=== PATIENT | male | born 1990 | race African-American/Black ===

== ENCOUNTER 2018-06-12 11:53 | Emergency (ER) | payer OTHER, SELFPAY ==
[2018-06-12] MEDS ORDERED: CLINDAMYCIN 600MG/D5W 600 MG/50 ML BAG IV ONE (12:28)
[2018-06-12] MEDS ORDERED: NA CHLORIDE 0.9% 1,000 ML ONE (12:28)
[2018-06-12] MEDS ORDERED: FENTANYL CITR 100 MCG/2 ML ONE (12:28)
--- NOTE | 2018-06-12 12:47 | EKG ---
Test Date: 2018-06-12 Test Time: 12:15:22 Machine Brusher: SERA MEASUREMENT RESULTS: Intervals: Rate: 69 HI: 172 QRSD: 90 QT: 368 QTc: 394 [place]: P: 42 HI: 172 QRS: 70 T: 35 INTERPRETIVE STATEMENTS: Normal sinus rhythm Early repolarization Normal ECG No previous ECG available for comparison Electronically Signed On 06-12-18 12:47:10 CDT by Sam Pro
[2018-06-12 13:03] LABS: Absolute Lymphocytes (CBC) 2.5 K/uL (0.7-4.9); Absolute Monocytes 0.7 K/uL (0.1-1.3); Absolute Neutrophil 4.3 K/uL (1.8-8.0); Basophils % 1.2 % (0-1.3); Eosinophils % 2.6 % (0-4.4); Hematocrit 42.5 % (39.6-49.0); Lymphocytes % 32.6 % (15.3-44.8); MCH 27.6 pg (27.0-35.0); MCV 81.4 fL (80-100); Monocytes % 8.6 % (3.3-12.3); RBC Red Blood Cell Count 5.21 M/uL (4.33-5.43)
[2018-06-12 13:15] LABS: Protime INR 0.94
[2018-06-12 13:23] LABS: ALT/SGPT 113 U/L (12-78); AST/SGOT 48 U/L (15-37); Albumin 3.7 g/dL (3.4-5.0); Alkaline Phosphatase 81 U/L (45-117); BUN Blood Urea Nitrogen 13 mg/dL (7-18); Bicarbonate 29 mmol/L (21-32); Bilirubin Direct < 0.1 mg/dL (0-0.2); Bilirubin Total 0.3 mg/dL (0.2-1.0); CKMB Creatine Kinase MB 1.8 ng/mL (0.3-3.6); Creatine Phosphokinase 227 U/L (39-308); Glucose Level 218 mg/dL (74-106); Magnesium 1.9 mg/dL (1.8-2.4); NT PRO-BNP 16 pg/mL (<125); Potassium 4.4 mmol/L (3.5-5.1); Protein, Total 7.3 g/dL (6.4-8.2); Sodium Level 138 mmol/L (136-145)
[2018-06-12] MEDS ORDERED: AMLODIPINE 5 MG TAB ONE (14:11)
[2018-06-12] MEDS ORDERED: ASPIRIN 81 MG CHEWABLE TABLET ONE (14:11)
[2018-06-12 14:34] LABS: Urine Blood NEGATIVE (NEG); Urine Glucose 2+ (NEG); Urine Protein NEGATIVE (NEG); Urine Specific Gravity 1.025 (1.005-1.030)
[2018-06-12 14:37] LABS: Barbiturates NEGATIVE (NEGATIVE); Benzodiazepines POSITIVE (NEGATIVE); Cocaine NEGATIVE (NEGATIVE); METHAMPHETAM NEGATIVE (NEGATIVE); Methadone NEGATIVE (NEGATIVE); Opiates NEGATIVE (NEGATIVE); Phencyclidine NEGATIVE (NEGATIVE); THC Cannibis POSITIVE (NEGATIVE)
--- NOTE | 2018-06-12 15:07 | RAD REPORT ---
EXAM DESCRIPTION: RAD - Chest Single View - 06/12/2018 1:55 pm CLINICAL HISTORY: Left-sided chest pain COMPARISON: None. TECHNIQUE: AP portable chest image was obtained 1352 hours . FINDINGS: Lungs are clear. Heart and vasculature are normal. No measurable pleural effusion and no p neumothorax. No gross bony abnormality seen. No acute aortic finding. Single lead defibrillator in pl [address] via left subclavian approach. IMPRESSION: No acute cardiopulmonary process.
--- NOTE | 2018-06-12 15:55 | ER ---
Nurse's Notes [facility] Name: Kendall Taet Age: 28 yrs Sex: Male : 1990 Arrival Date: 06/12/2018 Time: 11:54 Bed 4 Private MD: Diagnosis: Dental caries, unspecified;Palpitations;Patient's intentional underdosing of medication regimen due to financial hardship Presentation: 06/12 11:55 Presenting complaint: Patient states: Right sided mouth pain x 1 year, left sided chest hb pain and "fluttering" since yesterday. Chest pain does not radiate, denies SOB. Hx [place] w/ defib placement, report pain is similar to previous [place]. Transition of care: patient was not received from another setting of care. Onset of symptoms was June 11, 2018. Risk Assessment: Do you want to hurt yourself or someone else? Patient reports no desire to harm self or others. Initial Sepsis Screen: Does the patient meet any 2 criteria? No. Patient's initial sepsis screen is negative. Does the patient have a suspected source of infection? No. Patient's initial sepsis screen is negative. Care prior to arrival: None. 11:55 Method Of Arrival: EMS: [facility] 11:55 Acuity: MELBA 3 hb Triage Assessment: 12:00 General: Appears in no apparent distress. uncomfortable, Behavior is calm, cooperative. hb Pain: Pain currently is 10 out of 10 on a pain scale. Neuro: Level of Consciousness is awake, alert, obeys commands, Oriented to person, place, time, situation. Cardiovascular: Capillary refill < 3 seconds Patient's skin is warm and dry. Respiratory: Airway is patent Trachea midline Respiratory effort is even, unlabored, Respiratory pattern is regular, symmetrical. Historical: - Allergies: 11:59 No Known Allergies; hb - PMHx: 11:59 Myocardial infarction; hb - PSHx: 11:59 Pacemaker/defib; hb - Immunization history:: Adult Immunizations up to date. - Social history:: Smoking status: Patient/guardian denies using tobacco. - Ebola Screening: : No symptoms or risks identified at this time. Vital Signs: 11:58 BP 159 / 102; Pulse 79; Resp 15; Temp 97.9; Pulse Ox 98% on R/A; Pain 10/10; hb 13:30 BP 156 / 96; Pulse 70; Resp 17; Pulse Ox 98% on R/A; Pain 10/10; sg 14:30 BP 143 / 86; Pulse 73; Resp 16 S; Temp 97.9; Pulse Ox 100% on R/A; sg ED Course: 11:54 Patient arrived in ED. hb 11:58 Triage completed. hb 11:58 Arm band placed on right wrist. hb 11:59 Surekha Hernandez FNP-C is [facility]. snw 11:59 Kj Moscoso MD is Attending Physician. snw 12:21 Geovani Doherty, RN is Primary Nurse. sg 12:33 First set of blood cultures drawn by me. Missed attempt(s): 20 gauge in right dh3 antecubital area. Bleeding controlled, band aid applied, catheter tip intact. 12:40 EKG done, by information technology manager. reviewed by Surekha DESHPANDE. at1 12:50 Initial lab(s) drawn, by me, sent to lab. Second set of blood cultures drawn by me. dh3 Inserted saline lock: 20 gauge in left wrist, using aseptic technique. Blood collected. 13:55 XRAY Chest (1 view) In Process Unspecified. EDMS 13:56 X-ray completed. Portable x-ray completed in exam room. Patient tolerated procedure la2 well. 15:10 EKG done, by information technology manager. reviewed by Surekha DESHPANDE. sm3 Administered Medications: 13:30 Drug: Clindamycin 600 mg Route: IVPB; Infused Over: 30 mins; Site: left hand; sg 13:30 Drug: NS 0.9% 1000 ml Route: IV; Rate: 75 ml/hr; Site: left hand; sg 13:30 Drug: fentaNYL (PF) 50 mcg Route: IVP; Site: left hand; sg 14:00 Follow up: Response: No adverse reaction; Pain is unchanged, physician notified sg 14:10 Drug: Aspirin Chewable Tablet 324 mg Route: PO; sg 15:00 Follow up: Response: No adverse reaction sg 14:10 Drug: Norvasc 10 mg Route: PO; sg 15:00 Follow up: Response: No adverse reaction sg Outcome: 15:55 Discharge ordered by . snw 16:05 Patient left the ED. sg Signatures: Dispatcher [employer] EDMS Geovani Doherty, RN RN sg Surekha Hernandez, LAUNDRY ATTENDANT-C LAUNDRY ATTENDANT-Csnw Abril valencia, home appliance tech EKG [facility] Hailey Neil, FRAN RN Tory Dotson 3 Radha English ga2 Shantal Duron 3
--- NOTE | 2018-06-12 15:55 | EDPHYS ---
Physician Documentation [facility] Name: Kendall Tate Age: 28 yrs Sex: Male : 1990 Arrival Date: 06/12/2018 Time: 11:54 Bed 4 Private MD: ED Physician Kj Moscoso HPI: 06/12 12:48 This 28 yrs old Black Male presents to ER via EMS with complaints of Chest Pain, Mouth snw Problem. 12:48 pt states he has multiple dental caries causing pain for over a year, worse last night snw and today, + "couldn't take it anymore and it's causing fluttering around my pacemaker". Onset: The symptoms/episode began/occurred suddenly, today. Severity of symptoms: At their worst the symptoms were moderate. It is unknown whether or not the patient has had similar symptoms in the past. The patient has not recently seen a physician, and does not have an established primary care provider. 2014 + NH and defib placement . Historical: - Allergies: 11:59 No Known Allergies; hb - PMHx: 11:59 Myocardial infarction; hb - PSHx: 11:59 Pacemaker/defib; hb - Immunization history:: Adult Immunizations up to date. - Social history:: Smoking status: Patient/guardian denies using tobacco. - Ebola Screening: : No symptoms or risks identified at this time. ROS: 12:47 Constitutional: Negative for fever, chills, and weight loss, Eyes: Negative for injury, snw pain, redness, and discharge, Neck: Negative for injury, pain, and swelling. 12:47 Respiratory: Negative for shortness of breath, cough, wheezing, and pleuritic chest pain, Abdomen/GI: Negative for abdominal pain, nausea, vomiting, diarrhea, and constipation, Back: Negative for injury and pain, : Negative for injury, bleeding, discharge, and swelling, MS/Extremity: Negative for injury and deformity, Skin: Negative for injury, rash, and discoloration, Neuro: Negative for headache, weakness, numbness, tingling, and seizure. 12:47 ENT: Positive for dental pain, of the right buccal mucosa, lower right second molar and lower right third molar. 12:47 Cardiovascular: Positive for palpitations. Exam: 12:45 Constitutional: This is a well developed, well nourished patient who is awake, alert, snw and in no acute distress. Head/Face: Normocephalic, atraumatic. Eyes: Pupils equal round and reactive to light, extra-ocular motions intact. Lids and lashes normal. Conjunctiva and sclera are non-icteric and not injected. Cornea within normal limits. Periorbital areas with no swelling, redness, or edema. Neck: Trachea midline, no thyromegaly or masses palpated, and no cervical lymphadenopathy. Supple, full range of motion without nuchal rigidity, or vertebral point tenderness. No Meningismus. Chest/axilla: Normal chest wall appearance and motion. Nontender with no deformity. No lesions are appreciated. Cardiovascular: Regular rate and rhythm with a normal S1 and S2. No gallops, murmurs, or rubs. Normal PMI, no JVD. No pulse deficits. Respiratory: Lungs have equal breath sounds bilaterally, clear to auscultation and percussion. No rales, rhonchi or wheezes noted. No increased work of breathing, no retractions or nasal flaring. Abdomen/GI: Soft, non-tender, with normal bowel sounds. No distension or tympany. No guarding or rebound. No evidence of tenderness throughout. Back: No spinal tenderness. No costovertebral tenderness. Full range of motion. Skin: Warm, dry with normal turgor. Normal color with no rashes, no lesions, and no evidence of cellulitis. MS/ Extremity: Pulses equal, no cyanosis. Neurovascular intact. Full, normal range of motion. Neuro: Awake and alert, GCS 15, oriented to person, place, time, and situation. Cranial nerves II-XII grossly intact. Motor strength 5/5 in all extremities. Sensory grossly intact. Cerebellar exam normal. Normal gait. 12:45 ENT: External ear(s): no acute changes, Ear canal(s): no acute changes, TM's: are normal, Nose: is normal, Mouth: is normal, Posterior pharynx: is normal, Dental exam: dental caries, that is moderate, diffusely, tenderness to right upper and lower molars, fractured teeth are noted, Voice: is normal. Vital Signs: 11:58 BP 159 / 102; Pulse 79; Resp 15; Temp 97.9; Pulse Ox 98% on R/A; Pain 10/10; hb 13:30 BP 156 / 96; Pulse 70; Resp 17; Pulse Ox 98% on R/A; Pain 10/10; sg 14:30 BP 143 / 86; Pulse 73; Resp 16 S; Temp 97.9; Pulse Ox 100% on R/A; sg MDM: 12:13 Patient medically screened. snw 14:47 Data reviewed: vital signs, nurses notes. Data interpreted: Pulse oximetry: on room air snw is 98 %. Interpretation: normal. Counseling: I had a detailed discussion with the patient and/or guardian regarding: the historical points, exam findings, and any diagnostic results supporting the discharge/admit diagnosis, the presence of at least one elevated blood pressure reading (>120/80) during this emergency department visit, lab results. 15:01 Response to treatment: the patient's symptoms have mildly improved after treatment. ED snw course: awaiting result of second troponin. No defib firing, no changes to EKG x 2, Doubt NH at 26 was due to coronary artery disease. Pt states he only takes advil because he cannot afford medications. UDS + for THC and Benzo's. Will recommend f/u with PCP, Cardiology, and Dentist. 15:11 Special discussion: Based on the history and exam findings, there is no indication for snw further emergent testing or inpatient evaluation. I discussed with the patient/guardian the need to see the commercial real estate lender for further evaluation of the symptoms. I discussed with the patient/guardian the need to see a dentist for further evaluation of the symptoms. I discussed with the patient/guardian the need to see the primary care provider for further evaluation of the symptoms. 06/12 12:06 Order name: Basic Metabolic Panel; Complete Time: 13:42 snw 06/12 12:06 Order name: CBC with Diff; Complete Time: 13:42 snw 06/12 12:06 Order name: Ckmb; Complete Time: 13:42 snw 06/12 12:06 Order name: CPK; Complete Time: 13:42 snw 06/12 12:06 Order name: LFT's; Complete Time: 13:42 snw 06/12 12:06 Order name: Magnesium; Complete Time: 13:42 snw 06/12 12:06 Order name: NT PRO-BNP; Complete Time: 13:42 snw 06/12 12:06 Order name: PT-INR; Complete Time: 13:42 snw 06/12 12:06 Order name: Ptt, Activated; Complete Time: 13:42 snw 06/12 12:06 Order name: Troponin (emerg Dept Use Only); Complete Time: 13:42 snw 06/12 12:12 Order name: Blood Culture Adult (2) snw 06/12 12:12 Order name: UDS; Complete Time: 14:47 snw 06/12 14:13 Order name: Urine Dipstick--Ancillary (enter results) bd 06/12 14:48 Order name: Troponin (emerg Dept Use Only); Complete Time: 15:42 snw 06/12 12:06 Order name: XRAY Chest (1 view); Complete Time: 15:11 snw 06/12 12:06 Order name: EKG; Complete Time: 12:07 snw 06/12 12:06 Order name: Cardiac monitoring; Complete Time: 12:59 snw 06/12 12:06 Order name: EKG - Nurse/Tech; Complete Time: 12:59 snw 06/12 12:06 Order name: IV Saline Lock; Complete Time: 12:59 snw 06/12 12:06 Order name: Labs collected and sent; Complete Time: 12:59 snw 06/12 12:06 Order name: O2 Per Protocol; Complete Time: 12:59 snw 06/12 12:06 Order name: O2 Sat Monitoring; Complete Time: 12:59 snw 06/12 12:06 Order name: Urine Dipstick-Ancillary (obtain specimen); Complete Time: 14:11 snw 06/12 13:46 Order name: Diet Heart Healthy; Complete Time: 13:47 sg 06/12 14:48 Order name: EKG; Complete Time: 14:48 snw Administered Medications: 13:30 Drug: Clindamycin 600 mg Route: IVPB; Infused Over: 30 mins; Site: left hand; sg 13:30 Drug: NS 0.9% 1000 ml Route: IV; Rate: 75 ml/hr; Site: left hand; sg 13:30 Drug: fentaNYL (PF) 50 mcg Route: IVP; Site: left hand; sg 14:00 Follow up: Response: No adverse reaction; Pain is unchanged, physician notified sg 14:10 Drug: Aspirin Chewable Tablet 324 mg Route: PO; sg 15:00 Follow up: Response: No adverse reaction sg 14:10 Drug: Norvasc 10 mg Route: PO; sg 15:00 Follow up: Response: No adverse reaction sg Disposition: 06/12/18 15:55 Discharged to Home. Impression: Dental caries, unspecified, Palpitations, Patient's intentional underdosing of medication regimen due to financial hardship. - Condition is Stable. - Discharge Instructions: Nonspecific Chest Pain, Dental Pain, Hypertension, Palpitations, Diet and Dental Disease, Aspirin and Your Heart. - Prescriptions for Clindamycin HCl 150 mg Oral Capsule - take 1 capsule by ORAL route every 6 hours for 10 days; 40 capsule. Norvasc 10 mg Oral Tablet - take 1 tablet by ORAL route once daily; 30 tablet. - Work release form, Medication Reconciliation Form, Thank You Letter, Antibiotic Education, Prescription Opioid Use form. - Follow up: Private Physician; When: 2 - 3 days; Reason: Recheck today's complaints, Continuance of care, Re-evaluation by your physician. Follow up: Emergency Department; When: As needed; Reason: Worsening of condition. - Notes: Please take one baby aspirin daily Addendum: 06/14/2018 19:54 Co-signature as Attending Physician, Kj Moscoso MD I agree with the assessment and w a plan of care. Signatures: Dispatcher [employer] EDMS Geovani Doherty RN RN Surekha Avina, INSTRUMENT MAINTENANCE SUPERVISOR-C INSTRUMENT MAINTENANCE SUPERVISOR-Csnw Hailey Neil RN RN Kj Moscoso MD MD wa Corrections: (The following items were deleted from the chart) 06/12 16:05 15:55 06/12/2018 15:55 Discharged to Home. Impression: Dental caries, unspecified; sg Palpitations; Patient's intentional underdosing of medication regimen due to financial hardship. Condition is Stable. Discharge Instructions: Nonspecific Chest Pain, Dental Pain, Hypertension, Palpitations, Diet and Dental Disease, Aspirin and Your Heart. Prescriptions for Clindamycin HCl 150 mg Oral Capsule - take 1 capsule by ORAL route every 6 hours for 10 days; 40 capsule, Norvasc 10 mg Oral Tablet - take 1 tablet by ORAL route once daily; 30 tablet. and Forms are Work release form, Medication Reconciliation Form, Thank You Letter, Antibiotic Education, Prescription Opioid Use. Follow up: Private Physician; When: 2 - 3 days; Reason: Recheck today's complaints, Continuance of care, Re-evaluation by your physician. Follow up: Emergency Department; When: As needed; Reason: Worsening of condition. gustavo
--- NOTE | 2018-06-12 16:45 | EKG ---
Test Date: 2018-06-12 Test Time: 14:52:31 Java Software: PAUL MEASUREMENT RESULTS: Intervals: Rate: 65 DE: 178 QRSD: 90 QT: 378 QTc: 393 [place]: P: 38 DE: 178 QRS: 67 T: 37 INTERPRETIVE STATEMENTS: Normal sinus rhythm ST elevation, probably due to early repolarization Borderline ECG Compared to ECG 06/12/2018 12:15:22 ST (T wave) deviation now present Electronically Signed On 06-12-18 16:44:20 CDT by Sam Pro
== END 2018-06-12 16:05 | disposition home or self-care (01) ==
LOC: ER 11:53
DX: R00.2 Palpitations (principal); Z91.120 Patient's intentional underdosing of medication regimen due to financial hardship; I25.2 Old myocardial infarction; Z95.810 Presence of automatic (implantable) cardiac defibrillator
CPT/HCPCS: 36415; 71045; 80048; 80076; 80307; 81003; 82550; 82553; 83735; 83880; 84484; 85025; 85610; 85730; 87040; 93005; 96374; 96375; 99284; J3010; J7030

== ENCOUNTER 2018-07-07 04:21 | Emergency (ER) | payer SELFPAY ==
[2018-07-07] MEDS ORDERED: HYDROCODONE/APAP 5/325 MG TAB ONE (04:53)
[2018-07-07 05:08] LABS: Absolute Lymphocytes (CBC) 3.1 K/uL (0.7-4.9); Absolute Monocytes 0.6 K/uL (0.1-1.3); Absolute Neutrophil 3.4 K/uL (1.8-8.0); Basophils % 0.9 % (0-1.3); Eosinophils % 3.2 % (0-4.4); Hematocrit 41.3 % (39.6-49.0); Lymphocytes % 41.9 % (15.3-44.8); MCH 27.6 pg (27.0-35.0); MCV 82.9 fL (80-100); MPV 9.7 fL (7.6-11.3); Monocytes % 8.1 % (3.3-12.3); RBC Red Blood Cell Count 4.99 M/uL (4.33-5.43)
[2018-07-07 05:23] LABS: BUN Blood Urea Nitrogen 8 mg/dL (7-18); Bicarbonate 28 mmol/L (21-32); Glucose Level 366 mg/dL (74-106); Potassium 4.1 mmol/L (3.5-5.1); Sodium Level 138 mmol/L (136-145)
[2018-07-07 05:25] LABS: Urine Blood TRACE (NEG); Urine Glucose NEGATIVE (NEG); Urine Protein NEGATIVE (NEG); Urine Specific Gravity 1.025 (1.005-1.030)
--- NOTE | 2018-07-07 05:36 | ER ---
Nurse's Notes [facility] Name: Kendall Tate Age: 28 yrs Sex: Male : 1990 Arrival Date: 07/07/2018 Time: 04:24 Bed 7 Private MD: Diagnosis: Chest pain, unspecified;Dental caries;Headache;Essential (primary) hypertension Presentation: 07/07 04:25 Presenting complaint: EMS states: Initially toned out for chest pain, on arrival lp1 patient complaint of mouth pain to right side of mouth; States given antibiotics here in ED 2 weeks ago, no improvement and no follow-up; Patient states "the wind hurts my mouth". Transition of care: patient was not received from another setting of care. Onset of symptoms was July 07, 2018. Risk Assessment: Do you want to hurt yourself or someone else? Patient reports no desire to harm self or others. Initial Sepsis Screen: Does the patient meet any 2 criteria? No. Patient's initial sepsis screen is negative. Does the patient have a suspected source of infection? No. Patient's initial sepsis screen is negative. Care prior to arrival: Glucose check: 259. 04:25 Method Of Arrival: EMS: [facility] lp1 04:25 Acuity: MELBA 3 lp1 Historical: - Allergies: 04:29 Iodine; lp1 - Home Meds: 04:29 Coreg 12.5 mg Oral tab 1 tab 2 times per day [Active]; lp1 - PMHx: 04:29 Enlarged heart; lp1 05:32 Myocardial infarction; Hypertension; gs - Immunization history:: Adult Immunizations up to date. - Social history:: Smoking status: Patient uses tobacco products, smokes one-half pack cigarettes per day. - Ebola Screening: : No symptoms or risks identified at this time. Screenin:30 Abuse screen: Denies threats or abuse. Denies injuries from another. Nutritional lp1 screening: No deficits noted. Tuberculosis screening: No symptoms or risk factors identified. Fall Risk None identified. Assessment: 04:30 General: Appears in no apparent distress. uncomfortable, Behavior is cooperative, tl2 appropriate for age, anxious. Pain: Complains of pain in right side of mouth. Neuro: Level of Consciousness is awake, alert, obeys commands, Oriented to person, place, time, situation. Cardiovascular: Chest pain is described as mild, quality is sharp, is located in anterior. Respiratory: Airway is patent Respiratory effort is even, unlabored, Respiratory pattern is regular, symmetrical. GI: No signs and/or symptoms were reported involving the gastrointestinal system. : No signs and/or symptoms were reported regarding the genitourinary system. Derm: Skin is pink, warm \\T\\ dry. 05:51 Reassessment: Patient appears in no apparent distress at this time. Patient and/or tl2 family updated on plan of care and expected duration. Pain level reassessed. Patient is alert, oriented x 3, equal unlabored respirations, skin warm/dry/pink. Pt verbalized understanding of discharge instructions, need for follow up and prescription usage. Vital Signs: 04:27 BP 172 / 93; Pulse 73; Resp 18; Temp 97.4(TE); Pulse Ox 100% on R/A; Weight 111.13 kg; lp1 Height 6 ft. 3 in. (190.50 cm); Pain 10/10; 04:30 BP 156 / 87; Pulse 69; Resp 18; Pulse Ox 99% on R/A; tl2 05:41 BP 156 / 87; Pulse 73; Resp 18; Pulse Ox 99% on R/A; lp1 04:27 Body Mass Index 30.62 (111.13 kg, 190.50 cm) lp1 04:27 Patient states he has not been taking BP medication lp1 ED Course: 04:24 Patient arrived in ED. tl2 04:25 Viktoria Lake, FRAN is Primary Nurse. lp1 04:25 Richard De La Garza MD is Attending Physician. gs 04:27 Triage completed. lp1 04:27 Arm band placed on left wrist. lp1 04:29 Patient has correct armband on for positive identification. lp1 04:46 Inserted saline lock: 22 gauge in left wrist, using aseptic technique. tl2 04:52 XRAY Chest (1 view) In Process Unspecified. EDMS 05:51 No provider procedures requiring assistance completed. IV discontinued, intact, tl2 bleeding controlled, No redness/swelling at site. Pressure dressing applied. Administered Medications: 05:01 Drug: [place] 5 mg-325 mg 1 tabs Route: PO; tl2 05:52 Follow up: Response: No adverse reaction; Pain is decreased tl2 Outcome: 05:34 Discharge ordered by . gs 05:51 Discharged to home ambulatory. tl2 05:51 Condition: stable 05:51 Discharge instructions given to patient, Instructed on discharge instructions, follow up and referral plans. medication usage, Demonstrated understanding of instructions, follow-up care, medications, Prescriptions given X 1. 05:53 Patient left the ED. tl2 Signatures: Dispatcher [employer] EDMS Viktoria Lake RN RN lp1 Jessie Mijares RN RN tl2 Richard De La Garza MD MD gs Corrections: (The following items were deleted from the chart) 04:29 04:27 BP 172 / 93; Pulse 73bpm; Resp 18bpm; Pulse Ox 100% RA; Temp 97.4F Temporal; lp1 111.13 kg; Height 6 ft. 3 in.; BMI: 30.6; Pain 09/04; lp1 04:30 04:25 Acuity: MELBA 4 lp1 lp1
--- NOTE | 2018-07-07 05:36 | EDPHYS ---
Physician Documentation [facility] Name: Kendall Tate Age: 28 yrs Sex: Male : 1990 Arrival Date: 07/07/2018 Time: 04:24 Bed 7 Private MD: ED Physician Richard De La Garza HPI: 07/07 05:30 This 28 yrs old Black Male presents to ER via EMS with complaints of Mouth Problem. gs 05:30 The patient or guardian reports chest pain that is located primarily in the anterior gs chest wall. The pain does not radiate. Associated signs and symptoms: Pertinent positives: headache, toothache. The chest pain is described as dull. Duration: The patient or guardian reports multiple episodes, that are intermittent, that wax and wane, with no pattern, the episodes last approximately 1 minute(s). Modifying factors: The symptoms are alleviated by nothing. the symptoms are aggravated by nothing. Severity of pain: At its worst the pain was moderate in the emergency department the pain has resolved. The patient has experienced similar episodes in the past, multiple times. The patient has been recently seen at the [facility] Emergency Department, last month, for similar complaints all same. Historical: - Allergies: 04:29 Iodine; lp1 - Home Meds: 04:29 Coreg 12.5 mg Oral tab 1 tab 2 times per day [Active]; lp1 - PMHx: 04:29 Enlarged heart; lp1 05:32 Myocardial infarction; Hypertension; gs - Immunization history:: Adult Immunizations up to date. - Social history:: Smoking status: Patient uses tobacco products, smokes one-half pack cigarettes per day. - Ebola Screening: : No symptoms or risks identified at this time. ROS: 05:32 Neuro: Positive for headache. gs 05:32 All other systems are negative. Exam: 05:32 Head/Face: Normocephalic, atraumatic. Eyes: Pupils equal round and reactive to light, gs extra-ocular motions intact. Lids and lashes normal. Conjunctiva and sclera are non-icteric and not injected. Cornea within normal limits. Periorbital areas with no swelling, redness, or edema. Neck: Trachea midline, no thyromegaly or masses palpated, and no cervical lymphadenopathy. Supple, full range of motion without nuchal rigidity, or vertebral point tenderness. No Meningismus. Chest/axilla: Normal chest wall appearance and motion. Nontender with no deformity. No lesions are appreciated. Cardiovascular: Regular rate and rhythm with a normal S1 and S2. No gallops, murmurs, or rubs. Normal PMI, no JVD. No pulse deficits. Respiratory: Lungs have equal breath sounds bilaterally, clear to auscultation and percussion. No rales, rhonchi or wheezes noted. No increased work of breathing, no retractions or nasal flaring. Abdomen/GI: Soft, non-tender, with normal bowel sounds. No distension or tympany. No guarding or rebound. No evidence of tenderness throughout. Back: No spinal tenderness. No costovertebral tenderness. Full range of motion. Skin: Warm, dry with normal turgor. Normal color with no rashes, no lesions, and no evidence of cellulitis. MS/ Extremity: Pulses equal, no cyanosis. Neurovascular intact. Full, normal range of motion. Neuro: Awake and alert, GCS 15, oriented to person, place, time, and situation. Cranial nerves II-XII grossly intact. Motor strength 5/5 in all extremities. Sensory grossly intact. Cerebellar exam normal. Normal gait. 05:32 Constitutional: The patient appears alert, awake. 05:32 ENT: Dental exam: abscess, is not appreciated, dental caries, that is moderate, diffusely, fractured teeth are noted. 05:39 ECG was reviewed by the Attending Physician. Vital Signs: 04:27 BP 172 / 93; Pulse 73; Resp 18; Temp 97.4(TE); Pulse Ox 100% on R/A; Weight 111.13 kg; lp1 Height 6 ft. 3 in. (190.50 cm); Pain 10/10; 04:30 BP 156 / 87; Pulse 69; Resp 18; Pulse Ox 99% on R/A; tl2 05:41 BP 156 / 87; Pulse 73; Resp 18; Pulse Ox 99% on R/A; lp1 04:27 Body Mass Index 30.62 (111.13 kg, 190.50 cm) lp1 04:27 Patient states he has not been taking BP medication lp1 MDM: 04:34 Patient medically screened. 05:32 Differential diagnosis: acute myocardial infarction, chest wall pain, pneumonia. Data reviewed: vital signs, nurses notes. ED course: pt with chronic dental pain severe periodontal disease, said tooth started hurting subsequently got headache and chest pain. 07/07 04:35 Order name: Basic Metabolic Panel; Complete Time: 05:29 gs 07/07 04:35 Order name: CBC with Diff; Complete Time: 05:29 gs 07/07 04:35 Order name: Troponin (emerg Dept Use Only); Complete Time: 05:29 gs 07/07 04:35 Order name: XRAY Chest (1 view) 07/07 05:09 Order name: Urine Dipstick--Ancillary (enter results); Complete Time: 05:29 ms 07/07 04:35 Order name: EKG; Complete Time: 04:35 gs 07/07 04:35 Order name: Cardiac monitoring; Complete Time: 04:45 gs 07/07 04:35 Order name: EKG - Nurse/Tech; Complete Time: 05:01 gs 07/07 04:35 Order name: IV Saline Lock; Complete Time: 04:45 gs 07/07 04:35 Order name: Labs collected and sent; Complete Time: 04:45 gs 07/07 04:35 Order name: O2 Per Protocol; Complete Time: 04:45 07/07 04:35 Order name: O2 Sat Monitoring; Complete Time: 04:45 gs EC:39 Rate is 71 beats/min. Rhythm is regular. VT interval is normal. QRS interval is normal. gs QT interval is normal. Clinical impression: early repol, j point elevation. Interpreted by me. 05:42 No change from previous ECG. gs Administered Medications: 05:01 Drug: Porter 5 mg-325 mg 1 tabs Route: PO; tl2 05:52 Follow up: Response: No adverse reaction; Pain is decreased tl2 Disposition: 07/07/18 05:34 Discharged to Home. Impression: Chest pain, unspecified, Dental caries, Headache, Essential (primary) hypertension. - Condition is Stable. - Discharge Instructions: Nonspecific Chest Pain, Dental Caries, Adult. - Prescriptions for Naprosyn 500 mg Oral Tablet - take 1 tablet by ORAL route 2 times per day As needed take with food; 30 tablet. - Medication Reconciliation Form, Thank You Letter, Antibiotic Education, Prescription Opioid Use form. - Follow up: Private Physician; When: 2 - 3 days; Reason: Re-evaluation by your physician. Signatures: Dispatcher [employer] Viktoria Nelson, RN RN lp1 Jessie Mijares RN RN tl2 Richard De La Garza MD MD gs Corrections: (The following items were deleted from the chart) 05:36 05:34 07/07/2018 05:34 Discharged to Home. Impression: Chest pain, unspecified; Dental gs caries; Headache. Condition is Stable. Forms are Medication Reconciliation Form, Thank You Letter, Antibiotic Education, Prescription Opioid Use. Follow up: Private Physician; When: 2 - 3 days; Reason: Re-evaluation by your physician. 05:53 05:36 07/07/2018 05:34 Discharged to Home. Impression: Chest pain, unspecified; Dental tl2 caries; Headache; Essential (primary) hypertension. Condition is Stable. Discharge Instructions: Nonspecific Chest Pain, Dental Caries, Adult. Prescriptions for Naprosyn 500 mg Oral Tablet - take 1 tablet by ORAL route 2 times per day As needed take with food; 30 tablet. and Forms are Medication Reconciliation Form, Thank You Letter, Antibiotic Education, Prescription Opioid Use. Follow up: Private Physician; When: 2 - 3 days; Reason: Re-evaluation by your physician. gs
--- NOTE | 2018-07-07 08:51 | RAD REPORT ---
EXAM DESCRIPTION: RAD - Chest Single View - 07/07/2018 4:53 am CLINICAL HISTORY: Chest pain COMPARISON: June 12 TECHNIQUE: AP portable chest image was obtained 0439 hours . FINDINGS: On dolan are clear. Heart and vasculature are normal. No measurable pleural effusion and no pneumothorax. No gross bony abnormality seen. No acute aortic finding. Single lead defibrillator r emains in place. IMPRESSION: No acute cardiopulmonary process. No significant change from comparison.
--- NOTE | 2018-07-07 15:17 | EKG ---
Test Date: 2018-07-07 Test Time: 04:56:44 Countersinker Balance Screw Hole: DRARYL MEASUREMENT RESULTS: Intervals: Rate: 71 FL: 178 QRSD: 92 QT: 372 QTc: 404 [place]: P: 34 FL: 178 QRS: 60 T: 25 INTERPRETIVE STATEMENTS: Normal sinus rhythm Normal ECG Compared to ECG 06/12/2018 14:52:31 ST (T wave) deviation no longer present Early repolarization no longer present Electronically Signed On 07-07-18 15:16:08 CDT by Sam Pro
== END 2018-07-07 05:53 | disposition home or self-care (01) ==
LOC: ER 04:21
DX: K02.9 Dental caries, unspecified (principal); R51 Headache; I10 Essential (primary) hypertension; I25.2 Old myocardial infarction; Z91.048 Other nonmedicinal substance allergy status
CPT/HCPCS: 36415; 71045; 80048; 81003; 84484; 85025; 93005; 99284

== ENCOUNTER 2018-12-31 12:42 | Emergency (ER) | payer SELFPAY ==
[2018-12-31 13:33] LABS: Absolute Lymphocytes (CBC) 2.9 K/uL (0.7-4.9); Absolute Monocytes 0.5 K/uL (0.1-1.3); Absolute Neutrophil 3.7 K/uL (1.8-8.0); Basophils % 1.3 % (0-1.3); Eosinophils % 2.2 % (0-4.4); Hematocrit 43.2 % (39.6-49.0); Lymphocytes % 39.6 % (15.3-44.8); MPV 9.9 fL (7.6-11.3); Monocytes % 6.4 % (3.3-12.3); RBC Red Blood Cell Count 5.28 M/uL (4.33-5.43)
[2018-12-31 13:35] LABS: Protime INR 1.01
--- NOTE | 2018-12-31 13:41 | RAD REPORT ---
EXAM DESCRIPTION: Bruno Single View12/31/2018 1:32 pm CLINICAL HISTORY: Chest pain COMPARISON: June 2018 FINDINGS: The lungs appear clear of acute infiltrate. The heart is normal size. Pacemaker leads are in place. IMPRESSION: No acute abnormalities displayed
[2018-12-31 13:42] LABS: ALT/SGPT 35 U/L (12-78); AST/SGOT 22 U/L (15-37); Albumin 3.9 g/dL (3.4-5.0); Alkaline Phosphatase 78 U/L (45-117); BUN Blood Urea Nitrogen 12 mg/dL (7-18); Bicarbonate 28 mmol/L (21-32); Bilirubin Direct < 0.1 mg/dL (0-0.2); Bilirubin Total 0.3 mg/dL (0.2-1.0); Glucose Level 168 mg/dL (74-106); Magnesium 1.7 mg/dL (1.8-2.4); NT PRO-BNP 15 pg/mL (<125); Protein, Total 7.7 g/dL (6.4-8.2); Sodium Level 140 mmol/L (136-145); Troponin (Emerg Dept Use Only) < 0.02 ng/mL (0.0-0.045)
[2018-12-31 16:49] LABS: Urine Blood NEGATIVE (NEG); Urine Glucose TRACE (NEG); Urine Protein 1+ (NEG)
--- NOTE | 2018-12-31 16:56 | EKG ---
Test Date: 2018-11-30 Test Time: 12:54:55 Fermentation Operator: CHAUNCEY MEASUREMENT RESULTS: Intervals: Rate: 75 MA: 170 QRSD: 90 QT: 368 QTc: 410 [place]: P: 45 MA: 170 QRS: 77 T: 48 INTERPRETIVE STATEMENTS: Normal sinus rhythm with sinus arrhythmia Early repolarization Normal ECG Compared to ECG 07/07/2018 04:56:44 Early repolarization now present Electronically Signed On 12-31-18 16:55:24 WASTEWATER TREATMENT ENGINEER by Sam Pro
--- NOTE | 2018-12-31 17:05 | ER ---
Nurse's Notes [facility] Name: Kendall Tate Age: 28 yrs Sex: Male : 1990 Arrival Date: 12/31/2018 Time: 12:44 Bed 26 Private MD: None, None Diagnosis: Uncontrolled Diabetes Mellitus 2;Hypertension;Chest pain;Hyperglycemia Presentation: 12/31 12:45 Presenting complaint: Patient states: chest pain and palpitations that began 2 weeks aa5 ago. Pt states "I haven't been able to afford taking the metformin and Glimepiride for my diabetes". 12:45 Transition of care: patient was not received from another setting of care. Onset of aa5 symptoms was November 2018. Risk Assessment: Do you want to hurt yourself or someone else? Patient reports no desire to harm self or others. Initial Sepsis Screen: Does the patient meet any 2 criteria? No. Patient's initial sepsis screen is negative. Does the patient have a suspected source of infection? No. Patient's initial sepsis screen is negative. Care prior to arrival: None. 12:45 Method Of Arrival: Ambulatory aa5 12:45 Acuity: MELBA 3 aa5 Historical: - Allergies: 12:45 Iodine; aa5 - Home Meds: 13:13 Metformin Oral [Active]; Lisinopril Oral [Active]; Glipizide Oral [Active]; ca1 - PMHx: 12:45 Enlarged Heart; Hypertension; Myocardial infarction; Diabetes - NIDDM; aa5 - PSHx: 12:45 Pacemaker/defibrillator; aa5 - Immunization history:: Flu vaccine is not up to date. - Ebola Screening: : No symptoms or risks identified at this time. - Social history:: Smoking status: Patient uses tobacco products, 4 cigarettes a day. . Screenin:04 Abuse screen: Denies threats or abuse. Denies injuries from another. Nutritional ca1 screening: No deficits noted. Tuberculosis screening: No symptoms or risk factors identified. Fall Risk None identified. Assessment: 13:04 General: Appears in no apparent distress. ill, Behavior is calm, cooperative, ca1 appropriate for age. Pain: Complains of pain in chest Pain radiates to back Pain currently is 10 out of 10 on a pain scale. Pain began 2-3 days ago. Neuro: Level of Consciousness is awake, alert, obeys commands, Oriented to person, place, time, situation, Reports dizziness. Cardiovascular: Heart tones S1 S2 present Capillary refill < 3 seconds Patient's skin is warm and dry. Rhythm is sinus rhythm. Respiratory: Reports cough that is with blood. Airway is patent Respiratory effort is even, unlabored, Respiratory pattern is regular, symmetrical, Breath sounds are clear bilaterally. GI: Abdomen is round non-distended, Bowel sounds present X 4 quads. Abd is soft and non tender X 4 quads. Reports nausea, vomiting. : Reports incontinence. EENT: No signs and/or symptoms were reported regarding the EENT system. Derm: Skin is intact, Skin is pink, warm \\T\\ dry. Musculoskeletal: Circulation, motion, and sensation intact. Reports pain in bith ankes and knees. 14:16 Reassessment: Patient appears in no apparent distress at this time. Patient and/or ca1 family updated on plan of care and expected duration. Pain level reassessed. Patient is alert, oriented x 3, equal unlabored respirations, skin warm/dry/pink. 15:00 Reassessment: Patient appears in no apparent distress at this time. Patient and/or ca1 family updated on plan of care and expected duration. Pain level reassessed. Patient is alert, oriented x 3, equal unlabored respirations, skin warm/dry/pink. Pending Results. 16:10 Reassessment: Patient appears in no apparent distress at this time. Patient and/or ca1 family updated on plan of care and expected duration. Pain level reassessed. Patient is alert, oriented x 3, equal unlabored respirations, skin warm/dry/pink. Repeat Trop sent to lab. 17:05 Reassessment: Patient appears in no apparent distress at this time. Patient and/or ca1 family updated on plan of care and expected duration. Pain level reassessed. Patient is alert, oriented x 3, equal unlabored respirations, skin warm/dry/pink. Vital Signs: 12:50 BP 105 / 86; Pulse 73; Resp 16 S; Temp 98.7(O); Pulse Ox 98% on R/A; Weight 115.67 kg aa5 (R); Height 6 ft. 3 in. (190.50 cm) (R); Pain 10/10; 14:16 BP 133 / 100; Pulse 76; Resp 21; Pulse Ox 100% on R/A; ca1 15:00 BP 148 / 100; Pulse 70; Resp 18; Pulse Ox 100% on R/A; ca1 16:10 BP 150 / 91; Pulse 57; Resp 100; Pulse Ox 100% on R/A; ca1 17:05 BP 138 / 91; Pulse 66; Resp 18; Pulse Ox 100% on R/A; ca1 12:50 Body Mass Index 31.87 (115.67 kg, 190.50 cm) aa5 ED Course: 12:44 Patient arrived in ED. dl4 12:44 None, None is Private Physician. dl4 12:45 Arm band placed on. aa5 12:49 Missael Roche, RN is Primary Nurse. bp 12:50 Dustin Hackett MD is Attending Physician. ps1 12:54 Triage completed. aa5 13:02 EKG done, by overhead door technician. reviewed by Dustin Hackett MD. tc 13:04 Patient has correct armband on for positive identification. Placed in gown. Bed in low ca1 position. Call light in reach. Side rails up X 1. night monitor on. Pulse ox on. NIBP on. Warm blanket given. 13:04 Missed attempt(s): 20 gauge in right antecubital area. ca1 13:04 Patient maintains SpO2 saturation greater than 95% on room air. ca1 13:05 Initial lab(s) drawn, by me, sent to lab. Inserted saline lock: 20 gauge in right tm3 antecubital area, using aseptic technique. 13:20 Warm blanket given. Pillow given. tm3 13:29 X-ray completed. Portable x-ray completed in exam room. Patient tolerated procedure jb2 well. 13:31 XRAY Chest (1 view) In Process Unspecified. EDMS 17:15 No provider procedures requiring assistance completed. IV discontinued, intact, ca1 bleeding controlled, No redness/swelling at site. Pressure dressing applied. Administered Medications: No medications were administered Outcome: 17:05 Discharge ordered by . ps1 17:15 Discharged to home ambulatory, with significant other. ca1 17:15 Condition: stable 17:15 Discharge instructions given to patient, family, Instructed on discharge instructions, follow up and referral plans. medication usage, Demonstrated understanding of instructions, follow-up care, medications, Prescriptions given X 2. 17:22 Patient left the ED. ca1 Signatures: Dispatcher [employer] EDMS Nasim Guadarrama tm3 Geronimo Sharma jb2 Ce Coley, RN RN aa5 Shandra Leyva, shaker washer EKG Ttc Missael Roche RN RN bp Dustin Hackett MD MD ps1 Saurabh Yanez dl4 Dolores Castro RN RN ca1 Corrections: (The following items were deleted from the chart) 13: 13:19 Inserted saline lock: 20 gauge in right antecubital area, using aseptic tm3 technique. tm3 13: 13:20 Initial lab(s) drawn, by ia, sent to lab. tm3 tm3
--- NOTE | 2018-12-31 17:06 | EDPHYS ---
Physician Documentation [facility] Name: Kendall Tate Age: 28 yrs Sex: Male : 1990 Arrival Date: 12/31/2018 Time: 12:44 Bed 26 Private MD: None, None ED Physician Dustin Hackett HPI: 12/31 13:01 This 28 yrs old Black Male presents to ER via Ambulatory with complaints of Chest Pain. ps1 13:01 patient states that he is a newly diagnosed DM2 and was discharged from [place] [id number] with metformin and glipizide. He states that he did not follow up or establish care with a PCP. He stopped taking his medications several days ago. 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 Cards in [place]. He states since stopping his meds he has felt fatigued, had visual changes, polydipsia, frequency, and today felt as though he was going to pass out associated with chest pain. CP is non-specific. . Historical: - Allergies: 12:45 Iodine; aa5 - Home Meds: 13:13 Metformin Oral [Active]; Lisinopril Oral [Active]; Glipizide Oral [Active]; ca1 - PMHx: 12:45 Enlarged Heart; Hypertension; Myocardial infarction; Diabetes - NIDDM; aa5 - PSHx: 12:45 Pacemaker/defibrillator; aa5 - Immunization history:: Flu vaccine is not up to date. - Ebola Screening: : No symptoms or risks identified at this time. - Social history:: Smoking status: Patient uses tobacco products, 4 cigarettes a day. . ROS: 13:01 Constitutional: Negative for fever, chills, and weight loss, Eyes: Negative for injury, ps1 pain, redness, and discharge, Respiratory: Negative for shortness of breath, cough, wheezing, and pleuritic chest pain, Abdomen/GI: Negative for abdominal pain, nausea, vomiting, diarrhea, and constipation, Back: Negative for injury and pain. 13:01 Skin: Negative for injury, rash, and discoloration, Neuro: Negative for headache, weakness, numbness, tingling, and seizure, Psych: Negative for depression, anxiety, suicide ideation, homicidal ideation, and hallucinations. 13:01 Cardiovascular: Positive for chest pain. 13:01 : Positive for urinary symptoms, urinary frequency. 13:01 Neuro: Positive for near syncope. Exam: 13:01 Constitutional: This is a well developed, well nourished patient who is awake, alert, ps1 and in no acute distress. Head/Face: Normocephalic, atraumatic. Eyes: Pupils equal round and reactive to light, extra-ocular motions intact. Lids and lashes normal. Conjunctiva and sclera are non-icteric and not injected. Cardiovascular: Regular rate and rhythm. No gallops, murmurs, or rubs. Normal PMI, no JVD. No pulse deficits. Respiratory: Lungs have equal breath sounds bilaterally, clear to auscultation and percussion. No rales, rhonchi or wheezes noted. No increased work of breathing, no retractions or nasal flaring. Abdomen/GI: Soft, non-tender, with normal bowel sounds. No distension or tympany. No guarding or rebound. No evidence of tenderness throughout. Skin: Warm, dry with normal turgor. Normal color with no rashes, no lesions, and no evidence of cellulitis. MS/ Extremity: Pulses equal, no cyanosis. Neurovascular intact. Full, normal range of motion. Neuro: Awake and alert, GCS 15, oriented to person, place, time, and situation. Cranial nerves II-XII grossly intact. Sensory grossly intact. Psych: Awake, alert, with orientation to person, place and time. Behavior, mood, and affect are within normal limits. 13:01 Chest/axilla: Inspection: no acute changes, Palpation: is normal, AICD in left chest. Vital Signs: 12:50 BP 105 / 86; Pulse 73; Resp 16 S; Temp 98.7(O); Pulse Ox 98% on R/A; Weight 115.67 kg aa5 (R); Height 6 ft. 3 in. (190.50 cm) (R); Pain 10/10; 14:16 BP 133 / 100; Pulse 76; Resp 21; Pulse Ox 100% on R/A; ca1 15:00 BP 148 / 100; Pulse 70; Resp 18; Pulse Ox 100% on R/A; ca1 16:10 BP 150 / 91; Pulse 57; Resp 100; Pulse Ox 100% on R/A; ca1 17:05 BP 138 / 91; Pulse 66; Resp 18; Pulse Ox 100% on R/A; ca1 12:50 Body Mass Index 31.87 (115.67 kg, 190.50 cm) aa5 MDM: 12:51 Patient medically screened. ps1 17:03 Data reviewed: vital signs, nurses notes, lab test result(s), EKG, radiologic studies, ps1 and as a result, I will discharge patient. Counseling: I had a detailed discussion with the patient and/or guardian regarding: the historical points, exam findings, and any diagnostic results supporting the discharge/admit diagnosis, the presence of at least one elevated blood pressure reading (>120/80) during this emergency department visit, lab results, radiology results, the need for outpatient follow up, for definitive care. Special discussion: Based on the patient's history, exam, and Dx evaluation, there is no indication for emergent intervention or inpatient Tx. It is understood by the patient/guardian that if the Sx's persist or worsen they need to return immediately for re-evaluation. 12/31 12:50 Order name: LFT's; Complete Time: 13:48 ps1 12/31 12:50 Order name: Basic Metabolic Panel; Complete Time: 13:48 ps1 12/31 12:50 Order name: CBC with Diff; Complete Time: 13:48 ps1 12/31 12:50 Order name: Magnesium; Complete Time: 13:48 ps1 12/31 12:50 Order name: NT PRO-BNP; Complete Time: 13:48 ps1 12/31 12:50 Order name: PT-INR; Complete Time: 13:48 ps1 12/31 12:50 Order name: Troponin (emerg Dept Use Only); Complete Time: 13:48 ps1 12/31 12:50 Order name: XRAY Chest (1 view); Complete Time: 13:48 ps1 12/31 12:50 Order name: EKG; Complete Time: 12:51 ps1 12/31 13:01 Order name: Hemoglobin A1c ps1 12/31 13:05 Order name: Glucose, Ancillary Testing; Complete Time: 13:07 EDMS 12/31 15:36 Order name: Urine Dipstick--Ancillary (enter results); Complete Time: 17:13 bd 12/31 15:54 Order name: Hemoglobin A1c; Complete Time: 16:33 EDMS 12/31 16:00 Order name: Troponin (emerg Dept Use Only); Complete Time: 17:13 ps1 12/31 12:50 Order name: Cardiac monitoring; Complete Time: 12:51 [email or web address] 12/31 12:50 Order name: EKG - Nurse/Tech; Complete Time: 12:52 [email or web address] 12/31 12:50 Order name: IV Saline Lock; Complete Time: 13:20 [email or web address] 12/31 12:50 Order name: Labs collected and sent; Complete Time: 13:20 [email or web address] 12/31 12:50 Order name: O2 Per Protocol; Complete Time: 12:52 [email or web address]] 12/31 12:50 Order name: O2 Sat Monitoring; Complete Time: 12:52 [email or web address]] Administered Medications: No medications were administered Disposition: 12/31/18 17:05 Discharged to Home. Impression: Uncontrolled Diabetes Mellitus 2, Hypertension, Chest pain, Hyperglycemia. - Condition is Stable. - Discharge Instructions: Form - Daily Diabetes Record, Nonspecific Chest Pain, [id number], Blood Glucose Monitoring, Adult, Diabetes Mellitus and Food. - Prescriptions for metformin 500 mg Oral tablet - take 1 tablet by ORAL route 2 times per day with morning and evening meals; 60 tablet. Glipizide 5 mg Oral Tablet - take 1 tablet by ORAL route once daily before a meal; 20 tablet. - Work release form, Medication Reconciliation Form, Thank You Letter, Antibiotic Education, Prescription Opioid Use form. - Follow up: Private Physician; When: 48 Hours; Reason: Further diagnostic work-up, Recheck today's complaints, Continuance of care, Re-evaluation by your physician. - Problem is an ongoing problem. - Symptoms have improved. Signatures: Dispatcher [employer] EDCA Ce Coley RN RN aa5 Dustin Hackett MD MD ps1 Dolores Castro RN RN ca1 Corrections: (The following items were deleted from the chart) 17:22 17:05 12/31/2018 17:05 Discharged to Home. Impression: Uncontrolled Diabetes Mellitus ca1 2; Hypertension; Chest pain; Hyperglycemia. Condition is Stable. Forms are Medication Reconciliation Form, Thank You Letter, Antibiotic Education, Prescription Opioid Use. Follow up: Private Physician; When: 48 Hours; Reason: Further diagnostic work-up, Recheck today's complaints, Continuance of care, Re-evaluation by your physician. Problem is an ongoing problem. Symptoms have improved. ps1
== END 2018-12-31 17:22 | disposition home or self-care (01) ==
LOC: ER 12:42
DX: E11.65 Type 2 diabetes mellitus with hyperglycemia (principal); R07.9 Chest pain, unspecified; I10 Essential (primary) hypertension; I25.2 Old myocardial infarction; F17.210 Nicotine dependence, cigarettes, uncomplicated; Z79.84 Long term (current) use of oral hypoglycemic drugs
CPT/HCPCS: 36415; 71045; 80048; 80076; 81003; 82962; 83036; 83735; 83880; 84484; 85025; 85610; 93005; 99285

== ENCOUNTER 2019-03-27 10:57 | Emergency (ER) | payer SELFPAY ==
[2019-03-27 12:12] LABS: Absolute Lymphocytes (CBC) 2.2 K/uL (0.7-4.9); Absolute Monocytes 0.4 K/uL (0.1-1.3); Absolute Neutrophil 2.4 K/uL (1.8-8.0); Basophils % 1.4 % (0-1.3); Eosinophils % 1.7 % (0-4.4); Hematocrit 43.1 % (39.6-49.0); MPV 9.6 fL (7.6-11.3); RBC Red Blood Cell Count 5.24 M/uL (4.33-5.43)
[2019-03-27 12:17] LABS: Protime INR 1.03
[2019-03-27 12:26] LABS: ALT/SGPT 43 U/L (12-78); AST/SGOT 21 U/L (15-37); Albumin 3.9 g/dL (3.4-5.0); Alkaline Phosphatase 66 U/L (45-117); BUN Blood Urea Nitrogen 8 mg/dL (7-18); Bicarbonate 29 mmol/L (21-32); Bilirubin Direct < 0.1 mg/dL (0-0.2); Bilirubin Total 0.3 mg/dL (0.2-1.0); Glucose Level 123 mg/dL (74-106); Lipase 108 U/L (73-393); Potassium 3.9 mmol/L (3.5-5.1); Protein, Total 7.3 g/dL (6.4-8.2); Sodium Level 140 mmol/L (136-145)
[2019-03-27] MEDS ORDERED: NA CHLORIDE 0.9% 1,000 ML ONE (13:03)
[2019-03-27 13:09] LABS: Urine Bacteria NONE SEEN /HPF (NONE SEEN); Urine Culture Reflex Order NOT NEEDED; Urine RBC <5 /HPF (NONE SEEN)
[2019-03-27] MEDS ORDERED: MORPHINE 4 MG/ML SYR ONE (13:10)
[2019-03-27] MEDS ORDERED: ONDANSETRON 4 MG/2 ML VIAL ONE (13:10)
--- NOTE | 2019-03-27 13:54 | RAD REPORT ---
EXAM DESCRIPTION: CT - Abdomen Pelvis Wo Contrast - 03/27/2019 1:41 pm CLINICAL HISTORY: Abdominal pain. blood in stool, lower abdomen pain COMPARISON: No comparisons TECHNIQUE: CT imaging of the abdomen and pelvis was performed without contrast. Solid organ and vasc ular assessment is limited due to lack of IV contrast. All CT scans are performed using dose optimization technique as appropriate and may include automated exposure control or mA/KV adjustment according to patient size. FINDINGS: The lower lung dolan are clear. The liver, spleen, pancreas, adrenal glands and kidneys are within normal limits for a limited non-co ntrast examination. No bowel obstruction, free air, free fluid or abscess. The appendix is normal. The osseous structures are within normal limits. IMPRESSION: No acute intra-abdominal or pelvic findings. A limited non-contrast examination was performed as detailed.
--- NOTE | 2019-03-27 14:36 | ER ---
Nurse's Notes [facility] Name: Kendall Tate Age: 29 yrs Sex: Male : 1990 Arrival Date: 03/27/2019 Time: 10:58 Bed 8 Private MD: Diagnosis: Lower abdominal pain, unspecified Presentation: 03/27 11:13 Presenting complaint: Patient states: bright red streaks of blood in stool since last iw week , was recently on antibiotics fir kidney stones, still having right flank pain, was [facility] 2 [facility] ago for kidney stone, followed up with [facility], also c/o pain with urination and dark urine. Transition of care: patient was not received from another setting of care. Onset of symptoms was March 23, 2019. Risk Assessment: Do you want to hurt yourself or someone else? Patient reports no desire to harm self or others. Patient reports desire/thoughts of hurting themselves or someone else. Provider notified. Unable to obtain. Initial Sepsis Screen: Does the patient meet any 2 criteria? No. Patient's initial sepsis screen is negative. Does the patient have a suspected source of infection? No. Patient's initial sepsis screen is negative. Care prior to arrival: None. 11:13 Method Of Arrival: Ambulatory iw 11:13 Acuity: MELBA 3 iw Historical: - Allergies: 11:20 Iodine; iw - Home Meds: 11:20 glipizide 10 mg oral tab once daily [Active]; metformin 1,000 mg oral tab 2 times per iw day [Active]; gabapentin oral oral [Active]; unknown BP med daily [Active]; Potassium Chloride Oral once daily [Active]; - PMHx: 11:20 Diabetes - NIDDM; Enlarged Heart; Hypertension; Myocardial infarction; iw - PSHx: 11:20 Pacemaker/defibrillator; iw - Immunization history:: Adult Immunizations not up to date. - Social history:: Smoking status: Smoking status: Patient uses tobacco products, denies chronic smoking, but will smoke occasionally. - Ebola Screening: : Patient negative for fever greater than or equal to 101.5 degrees Fahrenheit, and additional compatible Ebola Virus Disease symptoms Patient denies exposure to infectious person Patient denies travel to an Ebola-affected area in the 21 days before illness onset No symptoms or risks identified at this time. Screenin:25 Abuse screen: Denies threats or abuse. Nutritional screening: No deficits noted. tw2 Tuberculosis screening: No symptoms or risk factors identified. Fall Risk None identified. Assessment: 11:55 General: Appears comfortable, Behavior is calm, cooperative. Pain: Complains of pain in aa5 right groin and right flank Pain does not radiate. Pain currently is 8 out of 10 on a pain scale. Quality of pain is described as sharp, Pain began 3-5 days ago Is continuous. Neuro: Level of Consciousness is awake, alert, obeys commands, Oriented to person, place, time, situation. Cardiovascular: Heart tones S1 S2 present Rhythm is regular. Respiratory: Airway is patent Respiratory effort is even, unlabored, Respiratory pattern is regular, symmetrical, Breath sounds are clear bilaterally. GI: Abdomen is round non-distended, Bowel sounds present X 4 quads. Abd is soft and non tender X 4 quads. Reports bloody stool, nausea, Patient currently denies vomiting. : Reports pain with urination. EENT: No signs and/or symptoms were reported regarding the EENT system. Derm: Skin is dry, Skin is normal, Skin temperature is warm. Musculoskeletal: Range of motion: intact in all extremities. 12:00 Reassessment: Pt completed CT oral contrast, CT notified. . aa5 12:55 Reassessment: Patient and/or family updated on plan of care and expected duration. Pain tw2 level reassessed. Patient is alert, oriented x 3, equal unlabored respirations, skin warm/dry/pink. pt requested something for pain, provider notified and pain medication administered. Patient states symptoms have not improved. 13:20 Reassessment: Patient and/or family updated on plan of care and expected duration. Pain aa5 level reassessed. Awaiting CT scan, pt notified of wait time. . Pain: Pain currently is 8 out of 10 on a pain scale. Neuro: Level of Consciousness is awake, alert, obeys commands, Oriented to person, place, time, situation. Respiratory: Airway is patent Respiratory effort is even, unlabored, Respiratory pattern is regular, symmetrical. Derm: Skin is dry, Skin is normal, Skin temperature is warm. 14:00 Reassessment: Patient appears in no apparent distress at this time. Patient and/or tw2 family updated on plan of care and expected duration. Pain level reassessed. Patient is alert, oriented x 3, equal unlabored respirations, skin warm/dry/pink. 14:58 Reassessment: Patient appears in no apparent distress at this time. Patient and/or tw2 family updated on plan of care and expected duration. Pain level reassessed. Patient is alert, oriented x 3, equal unlabored respirations, skin warm/dry/pink. Vital Signs: 11:20 BP 128 / 67; Pulse 87; Resp 16; Temp 97.8; Pulse Ox 98% on R/A; Weight 111.13 kg; iw Height 6 ft. 3 in. (190.50 cm); Pain 10/10; 12:00 BP 130 / 87; Pulse 68; Resp 15; Pulse Ox 100% on R/A; tw2 13:02 BP 116 / 78 Supine; Pulse 78; Resp 16; Pulse Ox 98% on R/A; aa5 14:58 BP 128 / 79; Pulse 74; Resp 17; Pulse Ox 99% on R/A; Pain 6/10; tw2 11:20 Body Mass Index 30.62 (111.13 kg, 190.50 cm) iw ED Course: 10:58 Patient arrived in ED. as 11:18 Triage completed. iw 11:20 Arm band placed on. iw 11:22 Ce Coley, RN is Primary Nurse. aa5 11:25 Bed in low position. Call light in reach. tw2 11:32 Isaias Murray PA is PHCP. cp 11:32 Rei Torres MD is Attending Physician. cp 12:00 Initial lab(s) drawn, by nj, sent to lab. Inserted saline lock: 20 gauge in right aa5 antecubital area, using aseptic technique. Blood collected. 12:50 No provider procedures requiring assistance completed. aa5 13:42 CT Abd/Pelvis - Without Cont: give oral contrast In Process Unspecified. EDMS 14:35 Kj Crabtree MD is Referral Physician. cp 14:58 IV discontinued, intact, bleeding controlled, No redness/swelling at site. Pressure tw2 dressing applied. Administered Medications: 12:58 Drug: NS 0.9% 1000 ml Route: IV; Rate: 1 bolus; Site: right antecubital; tw2 14:58 Follow up: Response: No adverse reaction; IV Status: Completed infusion; IV Intake: tw2 1000ml 12:58 Drug: Zofran 4 mg Route: IVP; Site: right antecubital; tw2 14:57 Follow up: Response: No adverse reaction tw2 13:01 Drug: morphine 4 mg Route: IVP; Site: right antecubital; tw2 14:00 Follow up: Response: No adverse reaction; Pain is decreased tw2 14:57 Follow up: Response: No adverse reaction; Pain is decreased tw2 Intake: 14:58 IV: 1000ml; Total: 1000ml. tw2 Output: 13:04 Urine: 300ml (Voided); Total: 300ml. tw2 Outcome: 14:36 Discharge ordered by . cp 14:58 Patient left the ED. tw2 14:58 Discharged to home ambulatory, with significant other. tw2 14:58 Condition: stable 14:58 Discharge instructions given to patient, significant other, Instructed on discharge instructions, follow up and referral plans. no drinking with medication, no driving heavy equipment, medication usage, safe sex practices, Demonstrated understanding of instructions, follow-up care, medications, Prescriptions given X 2. Signatures: Dispatcher [employer] Jannie Rodriguez Irene, RN RN Ce Coley RN RN aa5 Isaias Murray PA PA cp Wise, Tara, RN RN tw2 Corrections: (The following items were deleted from the chart) 11:21 11:13 Presenting complaint: Patient states: bright red streaks of blood in stool since iw last week , was recently on antibiotics fir kidney stones, still having right mid back pain, was seen [facility] 2 weeks ago for kidney stone, followed up with [facility] iw 13:25 13:02 BP 116 / 78 Supine; Pulse 48bpm; Resp 16bpm; Pulse Ox 98% RA; tw2 aa5
--- NOTE | 2019-03-27 14:36 | EDPHYS ---
Physician Documentation [facility] Name: Kendall Tate Age: 29 yrs Sex: Male : 1990 Arrival Date: 03/27/2019 Time: 10:58 Bed 8 Private MD: ED Physician Rei Torres HPI: 03/27 11:40 This 29 yrs old Black Male presents to ER via Ambulatory with complaints of Bloody cp Stools, Urinary Problem. 11:40 The patient presents with abdominal pain right lateral abdomen. cp 11:40 Onset: The symptoms/episode began/occurred 2 week(s) ago. The symptoms do not radiate. cp Associated signs and symptoms: Pertinent positives: blood in stools, dysuria, dark colored urine, Pertinent negatives: anorexia, fever. The symptoms are described as waxing/waning. 11:40 Patient reports noticing streaks of blood when wiping and in toilet over past week. cp Patient admits to hard and sometimes painful bowel movements, being seen at [facility] 2 weeks ago and diagnosed with kidney stones. Patient reports he followed up at [facility] and completed 2 rounds of antibiotics . Historical: - Allergies: 11:20 Iodine; iw - Home Meds: 11:20 glipizide 10 mg oral tab once daily [Active]; metformin 1,000 mg oral tab 2 times per iw day [Active]; gabapentin oral oral [Active]; unknown BP med daily [Active]; Potassium Chloride Oral once daily [Active]; - PMHx: 11:20 Diabetes - NIDDM; Enlarged Heart; Hypertension; Myocardial infarction; iw - PSHx: 11:20 Pacemaker/defibrillator; iw - Immunization history:: Adult Immunizations not up to date. - Social history:: Smoking status: Smoking status: Patient uses tobacco products, denies chronic smoking, but will smoke occasionally. - Ebola Screening: : Patient negative for fever greater than or equal to 101.5 degrees Fahrenheit, and additional compatible Ebola Virus Disease symptoms Patient denies exposure to infectious person Patient denies travel to an Ebola-affected area in the 21 days before illness onset No symptoms or risks identified at this time. ROS: 11:45 Constitutional: Negative for body aches, chills, fever, poor PO intake, weight loss. cp 11:45 Eyes: Negative for injury, pain, redness, and discharge. cp 11:45 ENT: Negative for drainage from ear(s), ear pain, sore throat, difficulty swallowing, difficulty handling secretions. 11:45 Cardiovascular: Negative for chest pain, palpitations. 11:45 Respiratory: Negative for cough, shortness of breath, wheezing. 11:45 Abdomen/GI: Positive for abdominal pain, nausea, rectal bleeding, Negative for vomiting, diarrhea. 11:45 Back: Negative for pain at rest, pain with movement, radiated pain. 11:45 : Negative for urinary symptoms, testicular pain 11:45 Skin: Negative for cellulitis, rash. 11:45 Neuro: Negative for altered mental status, dizziness, headache, weakness. 11:45 All other systems are negative. Exam: 11:50 Head/Face: Normocephalic, atraumatic. cp 11:50 Constitutional: The patient appears in no acute distress, alert, awake, non-toxic, well developed, well nourished. 11:50 Eyes: Periorbital structures: appear normal, Conjunctiva: normal, no exudate, no injection, Sclera: no appreciated abnormality, Lids and lashes: appear normal, bilaterally. 11:50 ENT: External ear(s): are unremarkable, Nose: is normal, Mouth: Lips: moist, Oral mucosa: pink and intact, moist, Posterior pharynx: Airway: no evidence of obstruction, patent. 11:50 Chest/axilla: Inspection: normal, Palpation: is normal, no crepitus, no tenderness. 11:50 Cardiovascular: Rate: normal, Rhythm: regular. 11:50 Respiratory: the patient does not display signs of respiratory distress, Respirations: normal, no use of accessory muscles, no retractions, no splinting, no tachypnea, labored breathing, is not present, Breath sounds: are clear throughout, no decreased breath sounds, no stridor, no wheezing. 11:50 Abdomen/GI: Inspection: abdomen appears normal, Bowel sounds: active, all quadrants, Palpation: soft, in all quadrants, mild abdominal tenderness, in the right lower quadrant and left lower quadrant, rebound tenderness, is not appreciated, voluntary guarding, is elicited in the right lower quadrant, involuntary guarding, is not appreciated, Rectal exam: Stool: brown, guaiac positive. 11:50 Neuro: Orientation: to person, place \T\ time. Mentation: is normal, Cerebellar function: is grossly normal, Motor: moves all fours, strength is normal. 12:15 ECG was reviewed by the Attending Physician. cp Vital Signs: 11:20 BP 128 / 67; Pulse 87; Resp 16; Temp 97.8; Pulse Ox 98% on R/A; Weight 111.13 kg; iw Height 6 ft. 3 in. (190.50 cm); Pain 10/10; 12:00 BP 130 / 87; Pulse 68; Resp 15; Pulse Ox 100% on R/A; tw2 13:02 BP 116 / 78 Supine; Pulse 78; Resp 16; Pulse Ox 98% on R/A; aa5 14:58 BP 128 / 79; Pulse 74; Resp 17; Pulse Ox 99% on R/A; Pain 6/10; tw2 11:20 Body Mass Index 30.62 (111.13 kg, 190.50 cm) iw MDM: 11:32 Patient medically screened. cp 12:00 Differential diagnosis: appendicitis, cholecystitis, Cholelithiasis, diverticulitis, cp gastritis, GI Bleed, Peptic Ulcer Disease, Perf. Duodenal Ulcer, Perf. Gastric Ulcer, Pyelonephritis, Ureterolithiasis, urinary tract infection, anemia. 14:35 Data reviewed: vital signs, nurses notes, lab test result(s), radiologic studies, CT cp scan, I have discussed the patient's presentation/case with the attending Emergency Department Physician; and as a result, I will discharge patient. 14:35 Counseling: I had a detailed discussion with the patient and/or guardian regarding: the cp historical points, exam findings, and any diagnostic results supporting the discharge/admit diagnosis, lab results, radiology results, the need for outpatient follow up, a assistant foreman, to return to the emergency department if symptoms worsen or persist or if there are any questions or concerns that arise at home. Response to treatment: the patient's symptoms have markedly improved after treatment, and as a result, I will discharge patient. ED course: VSS. Pain improved. CT negative for significant findings. Labs reviewed and stable. Will discharge to home for continued monitoring. 03/27 11:44 Order name: Basic Metabolic Panel; Complete Time: 12:42 cp 03/27 12:42 Interpretation: Normal except: CL 108; GLUC 123; CA 8.4. cp 03/27 11:44 Order name: CBC with Diff; Complete Time: 12:42 cp 03/27 12:42 Interpretation: Normal except: BASO% 1.4. cp 05 11:44 Order name: Creatinine for Radiology; Complete Time: 12:42 cp 03/27 11:44 Order name: Hepatic Function; Complete Time: 12:42 cp 03/27 11:44 Order name: Lipase; Complete Time: 12:42 cp 03/27 11:44 Order name: Urine Microscopic Only; Complete Time: 13:59 cp 03/27 11:44 Order name: PT-INR; Complete Time: 12:42 cp 03/27 11:44 Order name: Ptt, Activated; Complete Time: 12:42 cp 03/27 11:53 Order name: CT Abd/Pelvis - Without Cont: give oral contrast; Complete Time: 13:59 cp 03/27 12:03 Order name: Type And Screen; Complete Time: 13:59 cp 03/27 12:59 Order name: Urine Dipstick--Ancillary (enter results) eb 03/27 11:44 Order name: IV Saline Lock; Complete Time: 12:04 cp 03/27 11:44 Order name: Labs collected and sent; Complete Time: 12:04 cp 03/27 11:44 Order name: Urine Dipstick-Ancillary (obtain specimen); Complete Time: 13:12 cp 03/27 11:53 Order name: EKG; Complete Time: 11:54 cp 03/27 11:53 Order name: EKG - Nurse/Tech; Complete Time: 12:19 cp EC:15 Rate is 62 beats/min. Rhythm is regular. [place] interval is normal. QRS interval is normal. cp QT interval is normal. Interpreted by me. Reviewed by me. Administered Medications: 12:58 Drug: NS 0.9% 1000 ml Route: IV; Rate: 1 bolus; Site: right antecubital; tw2 14:58 Follow up: Response: No adverse reaction; IV Status: Completed infusion; IV Intake: tw2 1000ml 12:58 Drug: Zofran 4 mg Route: IVP; Site: right antecubital; tw2 14:57 Follow up: Response: No adverse reaction tw2 13:01 Drug: morphine 4 mg Route: IVP; Site: right antecubital; tw2 14:00 Follow up: Response: No adverse reaction; Pain is decreased tw2 14:57 Follow up: Response: No adverse reaction; Pain is decreased tw2 Disposition: 17:00 Co-signature as Attending Physician, Rei Torres MD. rn Disposition: 03/27/19 14:36 Discharged to Home. Impression: Lower abdominal pain, unspecified. - Condition is Stable. - Discharge Instructions: Abdominal Pain, Adult. - Prescriptions for Bentyl 20 mg Oral Tablet - take 1 tablet by ORAL route every 6 hours As needed; 20 tablet. Zofran 4 mg Oral Tablet - take 1 tablet by ORAL route every 12 hours As needed; 20 tablet. - Medication Reconciliation Form, Thank You Letter, Antibiotic Education, Prescription Opioid Use, Work release form, Family Work Release form. - Follow up: Kj Crabtree MD; When: 1 - 2 days; Reason: Recheck today's complaints. - Problem is new. - Symptoms have improved. Signatures: Dispatcher [employer] EDLoren Dhaliwal RN RN iw Nieto, Roman, MD MD rn Page, Corey, PA PA cp Wise, Tara, RN RN tw2 Corrections: (The following items were deleted from the chart) 12:42 12:42 Normal except: CL 108; GLUC 123. cp cp 14:58 14:36 03/27/2019 14:36 Discharged to Home. Impression: Lower abdominal pain, tw2 unspecified. Condition is Stable. Forms are Medication Reconciliation Form, Thank You Letter, Antibiotic Education, Prescription Opioid Use. Follow up: Kj Crabtree; When: 1 - 2 days; Reason: Recheck today's complaints. Problem is new. Symptoms have improved. cp
[2019-03-27 14:43] LABS: Urine Blood NEGATIVE (NEG); Urine Glucose TRACE (NEG); Urine Protein NEGATIVE (NEG)
--- NOTE | 2019-03-27 17:06 | EKG ---
Test Date: 2019-03-27 Test Time: 12:08:12 Reprographics Technician: SERA MEASUREMENT RESULTS: Intervals: Rate: 62 LA: 160 QRSD: 96 QT: 378 QTc: 383 [place]: P: 50 LA: 160 QRS: 84 T: 46 INTERPRETIVE STATEMENTS: Normal sinus rhythm Early repolarization Normal ECG Compared to ECG 12/31/2018 12:54:55 Sinus arrhythmia no longer present Electronically Signed On 03-27-19 17:04:57 CDT by Sam Pro
== END 2019-03-27 14:58 | disposition home or self-care (01) ==
LOC: ER 10:57
DX: R10.30 Lower abdominal pain, unspecified (principal); E11.9 Type 2 diabetes mellitus without complications; I10 Essential (primary) hypertension; I25.2 Old myocardial infarction; Z79.84 Long term (current) use of oral hypoglycemic drugs; Z72.0 Tobacco use
CPT/HCPCS: 36415; 74176; 80048; 80076; 81003; 81015; 83690; 85025; 85610; 85730; 86850; 86900; 86901; 93005; 96361; 96374; 96375; 99284; J2405; J7030